=== PATIENT | male | born 1975 | race Caucasian/White ===

== ENCOUNTER 2022-09-15 12:55 | Emergency (ER) | payer BC ==
[2022-09-15 13:01] VITALS: BP 158/67; PULSE 85; RESP 20
[2022-09-15] MEDS ORDERED: ACET/COD 300 MG/30 MG STARTER PACK 6 TAB BTL PO STA (13:44)
--- NOTE | 2022-09-15 13:47 | ED ---
Skin/Abscess/FB HPI - General Chief complaint: Skin/Abscess/Foreign Body Stated complaint: Abscess Time Seen by Provider: 09/15/22 13:09 Source: patient, RN notes reviewed Mode of arrival: ambulatory Limitations: no limitations - History of Present Illness Initial comments: Patient is a 47-year-old male presenting to the emergency room at the direction of urgent care with complaints of painful cystlike lesions to his anal region. He reports that the lesion has been ongoing for approximately 1 week with increased intensity of pain over the last 48 hours however pain improved after the lesion started draining today with copious amounts of bloody purulent drainage. He states that he went to urgent care as he was concerned he needed a ntibiotic therapy however urgent care directed him to the emergency room. With the exception of pain and drainage he denies any other systemic symptoms including any chest pain, shortness breath, abdominal pain, nausea, vomiting, fevers or chills. He reports that he is defecating without competitions. He has no significant past medical history. - Related Data Home Medications Medication Instructions Recorded Confirmed Multivitamins, Thera [Multivitamin] 1 tab PO DAILY 01/24/16 02/15/22 Inulin/Chromium Picolinate [Fiber 1 tab PO DAILY 02/17/22 02/17/22 Gummies Chew] Previous Rx's Medication Instructions Recorded Amoxicillin 875 mg PO Q12HR 14 Days #28 tablet 09/15/22 Allergies Allergy/AdvReac Type Severity Reaction Status Date / Time hydromorphone HCl Allergy SEIZURE Verified 02/17/22 08:04 [From Dilaudid] Review of Systems ROS Statement: Those systems with pertinent positive or pertinent negative responses have been documented in the HPI. ROS Other: All systems not noted in ROS Statement are negative. Past Medical History Past Medical History: No Reported History History of Any Multi-Drug Resistant Organisms: None Reported Past Surgical History: Orthopedic Surgery, Tonsillectomy Additional Past Surgical History / Comment(s): EYE SX CHILD. RT ANKLE SX. FISTULA PROCEDURE Past Anesthesia/Blood Transfusion Reactions: Postoperative Nausea & Vomiting (PONV) Past Psychological History: No Psychological Hx Reported Smoking Status: Former smoker Past Alcohol Use History: Occasional Past Drug Use History: None Reported - Past Family History Mother Family Medical History: No Reported History General Exam - General Exam Comments Initial Comments: GENERAL: No acute distress, well developed, well nourished. HEENT: Normocephalic, atraumatic. Pupils equal, round, reactive to light. Moist mucous membranes. LUNGS: No respiratory distress or use of accessory muscles. HEART: Regular rate. ABDOMEN: Non-distended. Soft, nontender. Buttocks/BACK: Normal inspection. Good rectal tone, no evidence of anal fissure. Perianal abscess to right buttocks as indicated below. EXTREMITIES: No edema. No tenderness. Moves all extremities. NEUROLOGIC: Alert & oriented x 3. CN II-XII grossly intact. PSYCHIATRIC: Normal affect and behavior. DERMATOLOGIC: Tubular shaped abscess to right buttocks near the anus approximately 1.5 x 2.5 cm with surrounding induration draining serosanguineous and purulent fluid no significant odor. Limitations: no limitations Course Vital Signs 09/15/22 09/15/22 12:56 13:54 Temperature 98.0 F 97.9 F Pulse Rate 85 Respiratory 20 Rate Blood Pressure 158/67 O2 Sat by Pulse 99 Oximetry Medical Decision Making - Medical Decision Making Was pt. sent in by a medical professional or institution (, PA, TRAUMA DIRECTOR, urgent care, hospital, or custodial...) When possible be specific @ -Urgent care Did you speak to anyone other than the patient for history (EMS, parent, family, police, friend...)? What history was obtained from this source @ -No Did you review nursing and triage notes (agree or disagree)? Why? @ -I reviewed and agree with nursing and triage notes Were old charts reviewed (outside hosp., previous admission, EMS record, old EKG, old radiological studies, urgent care reports/EKG's, custodial records)? Report findings @ -No old charts were reviewed Differential Diagnosis (chest pain, altered mental status, abdominal pain women, abdominal pain men, vaginal bleeding, weakness, fever, dyspnea, syncope, headache, dizziness, GI bleed, back pain, seizure, CVA, palpatations, mental health, musculoskeletal)? @ -not applicable EKG interpreted by me (3pts min.). @ -None done X-rays interpreted by me (1pt min.). @ -None done CT interpreted by me (1pt min.). @ -None done U/S interpreted by me (1pt. min.). @ -None done What testing was considered but not performed or refused? (CT, X-rays, U/S, labs)? Why? @ -None What meds were considered but not given or refused? Why? @ -None Did you discuss the management of the patient with other professionals (professionals i.e. , PA, TRAUMA DIRECTOR, lab, RT, psych nurse, renal social worker, medical office receptionist, teacher, commercial escrow officer, case reviewer)? Give summary @ -No Was smoking cessation discussed for >3mins.? @ -No Was critical care preformed (if so, how long)? @ -No Were there social determinants of health that impacted care today? How? (Homelessness, low income, unemployed, alcoholism, drug addiction, transportation, low edu. Level, literacy, decrease access to med. care, halfway, rehab)? @ -No Was there de-escalation of care discussed even if they declined (Discuss DNR or withdrawal of care, Hospice)? DNR status @ -No What co-morbidities impacted this encounter? (DM, HTN, Smoking, COPD, CAD, Cancer, CVA, ARF, Chemo, Hep., AIDS, mental health diagnosis, sleep apnea, morbid obesity)? @ -None Was patient admitted / discharged? Hospital course, mention meds given and route, prescriptions, significant lab abnormalities, going to OR and other pertinent info. @ -47-year-old man presented to the emergency room with right buttocks. Anal abscess which is currently draining without any systemic symptoms of infection. He has not been on antibiotic therapy. As stated above abscesses already drainage no indication for further incision and drainage. In the absence of systemic infectious symptoms no indication for diagnostic imaging or laboratory studies at this time. Will place on antibiotic therapy patient is leaving the country [place] 1 week Will extend course of antibiotic therapy throughout his stay out of the country for duration of 14 days rather than 10 days of antibiotic. Encouraged sitz baths. Advised need for continued drainage of abscess. Advised if continued presence of abscess after completion of antibiotic therapy and continued drainage will need referral to surgeon for further intervention. Advised use of Tylenol 3 starter pack for pain as needed. Questions and concerns answered. Strict return parameters to the emergency room discussed. Will discharge home in stable condition on oral antibiotic therapy for a perianal abscess advising close monitoring of drainage and strict return parameters. Undiagnosed new problem with uncertain prognosis? @ -No Drug Therapy requiring intensive monitoring for toxicity (Heparin, Nitro, Insulin, Cardizem)? @ -No Were any procedures done? @ -No Diagnosis/symptom? @ -Perianal abscess Acute, or Chronic, or Acute on Chronic? @ -Acute Uncomplicated (without systemic symptoms) or Complicated (systemic symptoms)? @ -Uncomplicated Side effects of treatment? @ -No Exacerbation, Progression, or Severe Exacerbation? @ -No Poses a threat to life or bodily function? How? (Chest pain, [place], [place], pneumonia, PE, COPD, DKA, ARF, appy, cholecystitis, CVA, Diverticulitis, Homicidal, Suicidal, threat to staff... and all critical care pts) @ -No. Case discussed with Dr. Alicea Disposition Clinical Impression: Perianal abscess Disposition: HOME SELF-CARE Condition: Stable Instructions (If sedation given, give patient instructions): Abscess (ED) Additional Instructions: Complete antibiotic course as prescribed. Ensure continued drainage from abscess. Utilize Tylenol 3 starter pack for pain as needed. Regular sitz bath encouraged. Please follow-up with your primary care provider and is necessary information regarding general surgery is on discharge instructions. Please return to the Emergency Department if symptoms worsen or any other concerns. Prescriptions: Amoxicillin 875 mg PO Q12HR 14 Days #28 tablet Is patient prescribed a controlled substance at d/c from ED?: No Referrals: Danial Ashton III, MD [Primary Care Provider] - 1-2 days Paulino Grullon MD [STAFF PHYSICIAN] - 1-2 days (Call for appointment if abscess persists ) Time of Disposition: 13:47
[2022-09-15 13:56] VITALS: TEMP 97.9
== END 2022-09-15 13:56 | disposition home or self-care (01) ==
LOC: EC 12:55
DX: K61.0 Anal abscess (principal); Z88.8 Allergy status to other drugs, medicaments and biological substances; Z90.89 Acquired absence of other organs; Z87.891 Personal history of nicotine dependence
CPT/HCPCS: 99282

== ENCOUNTER 2022-12-11 12:35 | Day surgery (SDC) | payer BC ==
[~2022-12-11 12:35] MED LIST: LACTATED RINGERS 1,000 ML IV SCH
[2022-12-11 13:12] VITALS: RESP 16; TEMP 98.3
[2022-12-11] MEDS ORDERED: PROPOFOL 10 MG/ML 20 ML VIAL IV ONE (13:55)
[2022-12-11] MEDS ORDERED: LIDOCAINE 2% INJ 20 MG/ML (2 ML VIAL) ONE (13:55)
--- NOTE | 2022-12-11 14:09 | P.GSHP ---
History of Present Illness H&P Date: 12/11/22 Chief Complaint: History of anal fistula This is a 47-year-old male resents today for colonoscopy. Patient issues with anal fistula. He's had issues with pain bleeding and discharge. Past Medical History Past Medical History: No Reported History Additional Past Medical History / Comment(s): Pre-anal fistulectomy History of Any Multi-Drug Resistant Organisms: None Reported Past Surgical History: Orthopedic Surgery, Tonsillectomy Additional Past Surgical History / Comment(s): PT SCHEDULED FOR COLONOSCOPY 12/11/22, EYE SX CHILD. RT ANKLE SX. PAST FISTULA PROCEDURE/colonoscopy Past Anesthesia/Blood Transfusion Reactions: Motion Sickness, Postoperative Nausea & Vomiting (PONV) Additional Past Anesthesia/Blood Transfusion Reaction / Comment(s): Pt has never received blood. Smoking Status: Former smoker - Past Family History Mother Family Medical History: Osteoarthritis (OA) Father Family Medical History: Dementia, Diabetes Mellitus Additional Family Medical History / Comment(s): Medications and Allergies Home Medications Medication Instructions Recorded Confirmed Type Multivitamins, Thera [Multivitamin] 1 tab PO QAM 01/24/16 12/11/22 History Inulin/Chromium Picolinate [Fiber 1 tab PO QAM 02/17/22 12/11/22 History Gummies Chew] Allergies Allergy/AdvReac Type Severity Reaction Status Date / Time hydromorphone HCl Allergy SEIZURE Verified 12/11/22 12:57 [From Dilaudid] Surgical - Exam Vital Signs Temp Pulse Resp BP Pulse Ox 98.3 F 69 16 112/63 100 12/11/22 12:56 12/11/22 12:56 12/11/22 12:56 12/11/22 12:56 12/11/22 12:56 - General well developed, well nourished, no distress - Eyes PERRL - ENT normal pinna - Neck no masses - Respiratory normal expansion - Cardiovascular Rhythm: regular - Abdomen Abdomen: soft, non tender Assessment and Plan Assessment: History of anal fistula. We'll perform colonoscopy.
--- NOTE | 2022-12-11 14:20 | P.OP ---
Date of Procedure: 12/11/22 Preoperative Diagnosis: Anal fistula Postoperative Diagnosis: External hemorrhoids Procedure(s) Performed: Colonoscopy Anesthesia: MAC Surgeon: Paulino Grullon Pathology: none sent Condition: stable Disposition: PACU Description of Procedure: Patient's placed on the endoscopy table in the lateral position. He received IV sedation. Digital rectal exam was performed. This revealed external hemorrhoids. Flexible colonoscope was then placed patient anus and passed throughout the entire colon. The ileocecal valve was visually is. The cecum, ascending and transverse colon appeared normal. The descending and sigmoid colon appeared normal. The scope was then brought back the rectum and this appeared normal. Scope withdrawn through the anus and external hemorrhoids are noted. There is no evidence of any perirectal Fischl's. Scope was withdrawn for patient.
[2022-12-11 14:38] VITALS: BP 104/68; PULSE 58
== END 2022-12-11 15:10 | disposition home or self-care (01) ==
LOC: ORWHC2ENDO 12:35
PROVIDERS: ATTEND Surgery
DX: K60.3 Anal fistula (principal); K64.4 Residual hemorrhoidal skin tags; Z90.49 Acquired absence of other specified parts of digestive tract; Z98.890 Other specified postprocedural states; Z87.891 Personal history of nicotine dependence; Z82.61 Family history of arthritis; Z83.3 Family history of diabetes mellitus; Z88.5 Allergy status to narcotic agent; Z79.899 Other long term (current) drug therapy
CPT/HCPCS: 45378; J2704; J2001

== ENCOUNTER 2022-12-12 06:14 | Day surgery (SDC) | payer BC ==
[~2022-12-12 06:14] MED LIST changes: +ACETAMINOPHEN TAB 500 MG TAB PO PRN; +HEPARIN SODIUM,PORCINE/PF 5,000 UNIT/0.5 ML SYRINGE SQ PRN; -LACTATED RINGERS 1,000 ML IV SCH; +Pre Op ABX Message 1 EACH MISC MISCELLANE ONE
[2022-12-12] MEDS ORDERED: LACTATED RINGERS 1,000 ML IV SCH (06:42)
[2022-12-12] MEDS ORDERED: DEXAMETHASONE SOD PHOSPHATE 4 MG/ML 1 ML VIAL IV ONE (06:42)
[2022-12-12] MEDS ORDERED: ONDANSETRON 4 MG/2 ML VIAL IVP ONE (06:42)
[2022-12-12] MEDS ORDERED: LIDOCAINE 1% (10MG/ML) FOR IV START INTRADERMA PRN (06:42)
[2022-12-12] MEDS ORDERED: SCOPOLAMINE 1 MG/72 HR PATCH TRANSDERM ONE (07:00)
[2022-12-12] MEDS ORDERED: fentaNYL (PF) 50 MCG/ML 2 ML AMP IV PRN (07:00)
[2022-12-12] MEDS ORDERED: droPERidol 5 MG/2 ML VIAL IVP PRN (07:00)
[2022-12-12] MEDS ORDERED: BUPIVACAINE (PF) 0.25% 30 ML VIAL SQ ONE (07:19)
[2022-12-12] MEDS ORDERED: fentaNYL (PF) 50 MCG/ML 2 ML AMP ONE (07:25)
[2022-12-12] MEDS ORDERED: LIDOCAINE 2% INJ 20 MG/ML (2 ML VIAL) ONE (07:25)
[2022-12-12] MEDS ORDERED: SUCCINYLCHOLINE CHLORIDE 200 MG/10 ML VIAL IV ONE (07:25)
[2022-12-12] MEDS ORDERED: MIDAZOLAM 2 MG/2 ML VIAL ONE (07:25)
[2022-12-12] MEDS ORDERED: PROPOFOL 10 MG/ML 20 ML VIAL IV ONE (07:25)
[2022-12-12] MEDS ORDERED: ePHEDrine 50 MG/ML 1 ML VIAL ONE (07:25)
[2022-12-12] MEDS ORDERED: SODIUM CHLORIDE 0.9% 50 ML with ceFAZolin 2,000 MG IV ONE ×2 (07:58)
[2022-12-12] MEDS ORDERED: LIDOCAINE 2%-EPI 1:100,000 20 ML VIAL SQ ONE (08:09)
[2022-12-12 08:25] VITALS: RESP 16; TEMP 97
--- NOTE | 2022-12-12 08:40 | P.OP ---
Date of Procedure: 12/12/22 Preoperative Diagnosis: Anal fistula, external hemorrhoids Postoperative Diagnosis: Anal fistula, external hemorrhoids Procedure(s) Performed: Exam under anesthesia Unroofing of anal fistula External/internal hemorrhoidectomy Anesthesia: FARHANA Surgeon: Paulino Grullon Estimated Blood Loss (ml): 5 Pathology: other (Internal and external hemorrhoids) Condition: stable Disposition: PACU Description of Procedure: Patient's placed on the operating table in the supine position. He received general endotracheal tube anesthesia. He was then placed in the prone jackknife position. His anus was prepped and draped usual sterile fashion. The anus was examined. There was evidence of anal fissure 6 o'clock position. Using the anal probe the fistula was probed and then the opening was seen in the anus at the 6 o'clock position. The fistula was unroofed. And then left cautery Juan's. There was a large hemorrhoidal column in the left lateral position. This was grasped Clamps. And then using Harmonic scissors the hemorrhoid column was excised. The specimens of pathology. There is no significant bleeding. The wound was cauterized with cautery. This point the anus was anesthetized 1% local Xylocaine with epinephrine. Patient top she will well. He was sent to recovery room in stable condition.
[2022-12-12 09:39] VITALS: BP 125/75; PULSE 75
== END 2022-12-12 09:40 | disposition home or self-care (01) ==
LOC: OR 06:14
PROVIDERS: ATTEND Surgery
DX: K60.3 Anal fistula (principal); K64.4 Residual hemorrhoidal skin tags; Z79.899 Other long term (current) drug therapy
CPT/HCPCS: 46255; J2250; J0330; J1100; J2405; J0690; J3010; J2704; J1644; J2001